=== PATIENT | male | born 1945 | race Caucasian/White ===

== ENCOUNTER 2022-12-02 16:32 | Outpatient (CLI) | payer MEDICARE, BC ==
[2022-12-02 17:43] LABS: #Basophils 0.1 10x3/uL (0.0-0.2); #Eosinphils 0.3 10x3/uL (0.0-0.5); #Monocytes 0.9 10x3/uL (0.0-1.1); #Neutrophils 5.9 10x3/uL (1.5-8.4); %Basophils 0.7 % (0.0-2.0); %Eosinophils 2.6 % (0.0-6.0); %Lymphocytes 29.9 % (18.0-47.0); %Monocytes 8.4 % (0.0-10.0); Hematocrit 37.9 % (38.8-50.0); Hemoglobin 12.9 g/dL (13.5-17.5); Mean Corpuscular Hemoglobin 31.5 pg (27.0-33.0); Mean Corpuscular Volume 92.7 fl (81.2-95.1); Mean Platelet Volume 11.4 fl (7.4-10.4); Platelet Count 217 10x3/uL (150-450); RBC Distribution Width 13.2 % (11.5-14.5); Red Blood Cell (RBC) Count 4.09 10x6/uL (4.32-5.72); White Blood Cell (WBC) Count 10.1 10x3/uL (3.5-10.5)
[2022-12-02 17:50] LABS: PTT 35.9 sec (22.0-33.0); Prothrombin Time 10.3 sec (9.5-12.1)
[2022-12-02 17:51] LABS: ALT (SGPT) 32 U/L (8-55); AST (SGOT) 29 U/L (5-34); Albumin 4.2 g/dL (3.4-4.8); Alkaline Phosphatase 58 U/L (40-110); Anion Gap 14 mmol/L (10-20); BUN (Urea Nitrogen) 16 mg/dL (8.4-25.7); Bilirubin, Direct 0.2 mg/dL (0.1-0.3); Bilirubin, Total 0.5 mg/dL (0.2-1.2); Calc. Creatinine Clearance 0 mL/min (70-130); Calcium 8.6 mg/dL (7.8-10.44); Carbon Dioxide 22 mmol/L (23-31); Chloride 102 mmol/L (98-107); Estimated GFR 64; Globulin 2.5 g/dL (2.4-3.5); Glucose 212 mg/dL (83-110); Potassium 4.4 mmol/L (3.5-5.1); Protein, Total 6.7 g/dL (5.8-8.1); Sodium 134 mmol/L (136-145)
== END 2022-12-02 16:33 | disposition home or self-care (01) ==
LOC: LABBT 16:32
PROVIDERS: ATTEND Internal Medicine Cardiovascular Disease
DX: Z01.812 Encounter for preprocedural laboratory examination (principal)
CPT/HCPCS: 80053; 80076; 85025; 85610; 85730

== ENCOUNTER 2022-12-04 06:42 | Day surgery (SDC) | payer MEDICARE, BC ==
[2022-12-02 17:18] VITALS: BMI 32.6
[2022-12-04 09:23] LABS: Cardiac Risk 3.7 (Less than 4.5)
[2022-12-04] MEDS ORDERED: Midazolam HCl 2 mg/2 ml Vial ONE (09:42)
[2022-12-04] MEDS ORDERED: Heparin 10,000 UNITS/ 10 ML VIAL ONE (09:43)
[2022-12-04] MEDS ORDERED: Nitroglycerin 50 MG/250 ML BOT 0 ML ONE (09:43)
[2022-12-04] MEDS ORDERED: Lidocaine 1% (PF) 30 ML VIAL ONE ×2 (09:43→11:27)
[2022-12-04] MEDS ORDERED: fentaNYL 50 mcg/mL 1 mL Vial ONE (09:43)
[2022-12-04] MEDS ORDERED: Adenosine 6 MG/2 ML VIAL ONE (09:52)
[2022-12-04] MEDS ORDERED: hydrALAZINE 20 MG/ML VIAL ONE ×2 (10:55→12:34)
[2022-12-04] MEDS ORDERED: Iopamidol 370 76% 100 ML VIAL ONE (13:11)
== END 2022-12-04 18:35 | disposition home or self-care (01) ==
LOC: CCL 06:42
PROVIDERS: ATTEND Internal Medicine Cardiovascular Disease
PROC: 4A023N7 Measurement of Cardiac Sampling and Pressure, Left Heart, Percutaneous Approach (ICD-10-PCS; principal; 2022-12-04)
PROC: B201YZZ Plain Radiography of Multiple Coronary Arteries using Other Contrast (ICD-10-PCS; 2022-12-04)
DX: I25.810 Atherosclerosis of coronary artery bypass graft(s) without angina pectoris (principal); Z79.899 Other long term (current) drug therapy; Z88.0 Allergy status to penicillin
CPT/HCPCS: 75630; 80061; 82962; 93005; 93455; C1769; J0360; 36416; C1751; C1887; C1894; J0153; J1644; J2001; J2250; J3010; Q9967